=== PATIENT | male | born 1975 | race Caucasian/White ===

== ENCOUNTER 2019-10-31 15:28 | Outpatient (CLI) | payer OTHER, SELFPAY ==
--- NOTE | 2019-10-31 15:40 | XR_ITS ---
WS: [id number] CERVICAL SPINE 3 VIEWS HISTORY: PAIN COMPARISON: None available. C5 retrolisthesis by 1.5 mm with respect to C6. Mild disc space narrowing at C5-6 with small osteophy susannah. No fractures. Lateral masses of C1 and C2 are aligned. Odontoid is intact. Soft tissues are normal. Unfused apophysis versus healed fracture tip of the C7 spinous process. XR/XR cervical spine 3V* [id number] IMPRESSION: Mild degenerative disc disease and spondylosis at C5-6. No fracture.
== END 2019-10-31 15:29 | disposition home or self-care (01) ==
LOC: RAD 15:33
PROVIDERS: Family Provider Nurse Practitioner; PCP Nurse Practitioner Family; Visit Provider Registered Nurse
DX: M50.322 Other cervical disc degeneration at C5-C6 level (principal)
CPT/HCPCS: 72040

== ENCOUNTER → 2020-06-30 12:00 | Outpatient (BNVA) | payer SELFPAY | PROVIDERS: Family Provider Nurse Practitioner; Visit Provider Family Medicine | DX: Z20.828 Contact with and (suspected) exposure to other viral communicable diseases (principal) | CPT/HCPCS: 87426; 87635 ==

== ENCOUNTER 2020-07-14 06:47 | Outpatient (CLI) | payer OTHER, SELFPAY ==
--- NOTE | 2020-07-14 07:15 | MR_ITS ---
WS: [id number] MRI RIGHT SHOULDER NONCONTRAST TECHNIQUE: Sagittal T2, coronal T1, T2 and proton density imaging. Axial gradient PDE imaging. CLINICAL INFORMATION: CHRONIC RIGHT SHOULDER PAIN COMPARISON: None. FINDINGS: Moderate degenerative arthritis AC joint with mild edema. Mild downsloping acromion. Slight subacromi al spurring. Degenerative arthritis AC joint is advanced for patient this age. Mild tendinopathy in the supraspinatus distally at the insertion. Supraspinatus is otherwise normal. Normal infraspinatus. Normal teres minor and subscapularis. Normal biceps labral anchor. Normal bicep s tendon in the bicipital groove. Tendinopathy or small intrasubstance tear within the intra-articula r biceps tendon.Glenoid labrum appears grossly unremarkable. MR/MR shoulder RT wo con* [id number] IMPRESSION: 1. Moderate degenerative arthritis with edema at the AC joint and mild downslo ping acromion. This is somewhat advanced for patient this age. 2. Mild tendinopathy in the distal supraspinatus at the insertion. 3. Rotator cuff is otherwise unremarkable. 4. Normal biceps tendon in the bicipital groove. 5. Tendinopathy or small intrasubstance tear within the intra-articular biceps tendon. 6. No other significant findings.
--- NOTE | 2020-07-14 07:27 | MR_ITS ---
WS: [id number] MRI CERVICAL SPINE NONCONTRAST TECHNIQUE: Sagittal T1, T2 and STIR imaging. Axial T2, gradient, and fiesta imaging. CLINICAL INFORMATION: CERVICAL RADICULOPATHY COMPARISON: None. FINDINGS: Straightening of the normal cervical lordosis. Disc bulging worse at C5-C6. Cord signal is normal. C2-C3: Normal C3-C4: Mild right and no significant left foraminal narrowing. Spinal canal is patent. C4-C5: Mild disc osteophytic ridging. Mild right and no significant left foraminal narrowing. Spinal canal is patent. Mild facet arthropathy. C5-C6: Disc osteophyte protrusion with slight indentation on cervical cord. Moderate central canal st enosis. Moderate bilateral bony foraminal narrowing. Moderate facet arthropathy. Foraminal narrowing worse in the left. C6-C7: Disc osteophyte complex with endplate ridging. Mild right and no significant left foraminal na rrowing. Spinal canal is patent. C7-T1: Mild left and no significant right foraminal narrowing. Spinal canal is patent. Visualized brain stem structures: Normal. Prevertebral soft tissues: Normal. MR/MR cervical spin wo con* [id number] IMPRESSION: 1. Straightening of the normal cervical lordosis. 2. Disc osteophyte complex C5-C6 with moderate central canal stenosis and mode rate bilateral bony foraminal narrowing 3. Moderate right C3-C4 and right C4-C5 bony foraminal narrowing. 4. Mild right C6-C7 bony foraminal narrowing. 5. Cord signal is normal.
== END 2020-07-14 06:48 | disposition home or self-care (01) ==
LOC: RADSHAW 06:50
PROVIDERS: PCP Family Medicine; Visit Provider Family Medicine
DX: M54.12 Radiculopathy, cervical region (principal); G89.29 Other chronic pain; M19.111 Post-traumatic osteoarthritis, right shoulder; M25.78 Osteophyte, vertebrae; M48.02 Spinal stenosis, cervical region
CPT/HCPCS: 72141; 73221

== ENCOUNTER 2021-12-11 15:03 | Emergency (ER) | payer OTHER, SELFPAY ==
[2021-12-11 15:10] VITALS: BP 177/119; PULSE 104; RESP 18; TEMP 36.7; O2SAT 97; BMI 32.3
[2021-12-11] MEDS: ceFAZolin 1,000 MG in sodium chloride 0.9% (plus) 50 ML 100 MG IV (15:47)
--- NOTE | 2021-12-11 16:45 | W.ED.EXTPRO ---
HPI - Extremity Problem General: Chief complaint: Extremity Injury, Upper Stated complaint: injury to left arm from box knife Time Seen by Provider: 12/11/21 15:24 Source: patient Mode of arrival: ambulatory Limitations: no limitations History of Present Illness: [id number] male presents emergency room with complaint of left forearm laceration. 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 They have been treating with direct pressure. MD Complaint: extremity pain Onset (ago): minute(s) Pain Consistency: constant Location: left and upper extremity Quality: sharp Radiation: distal Relieving factors: nothing Exacerbating factors: nothing Associated symptoms: Deny arthralgias, chest pain, fever(s), myalgias, rash or short of breath Review of Systems Const: Denies: fever(s) ENMT: Denies: throat pain, ear or mastoid pain, nasal discharge or nasal congestion Card: Denies: chest pain Resp: Denies: dyspnea, productive cough or non-productive cough GI: Denies: abdominal pain, nausea, vomiting, hematemesis, coffee ground emesis, diarrhea, constipation, bloating, hematochezia or melena : Denies: flank pain, dysuria, urinary frequency or urinary urgency Skin/Breast: Denies: rash PFSH ED PFSH: Medical History (Updated 12/11/21 @ 16:48 by Perry Graves DO) Anxiety Gout Seizure Surgical History (Updated 12/11/21 @ 16:48 by Perry Graves DO) History of ankle surgery History of back surgery History of facial surgery History of knee surgery Social History Smoking and tobacco status: current every day smoker smokeless tobacco Alcohol intake: current Alcohol intake frequency: holidays/special occasions only Physical Exam Const: COMMON NORMALS: no acute distress GENERAL APPEARANCE: cooperative and comfortable ORIENTATION/CONSCIOUSNESS: Yes awake, Yes oriented to person, Yes oriented to place and Yes oriented to time HENMT: COMMON NORMALS: normocephalic, atraumatic and hearing grossly normal bilaterally HEAD & SCALP: normocephalic and atraumatic Neck/C-Spine: COMMON NORMALS: no JVD Resp: COMMON NORMALS: normal respiratory effort, No retractions, No use of accessory muscles and clear to auscultation bilaterally AUSCULTATION: clear to auscultation bilaterally Cardio: COMMON NORMALS: no JVD, regular rate, regular rhythm and No murmurs present (Cardio) RATE: regular rate RHYTHM: regular rhythm Extremity: OTHER: 3 in laceration on the proximal volar surface of forearm with large amount of bleeding with direct pressure is stopped. See laceration note. Patient is able to move wrist and fingers in flexion extension against resistance without difficulty strength is well preserved sensation is preserved. Neuro: SENSORIUM/ORIENTATION: Yes oriented to person, Yes oriented to place and Yes oriented to time Skin: COMMON NORMALS: no rashes or lesions noted GENERAL SKIN EXAM: no rashes or lesions noted Procedures Laceration Laceration 1: Site: upper extremity Side (If applicable): left Size (cm): 7.5 Description: linear Depth: involves muscle layer Local Anesthetic: lidocaine 1% and with epi Amount of anesthesia used (mL): 8 Pre-repair: wound explored, irrigated extensively and deep structures intact Skin layer closed with: other (Prolene) Size (cm): 3-0 Number of sutures: 1 Technique: running Subcutaneous layer closed with: chromic gut (5.0) and vicryl (4.0) Size: 5-0 Number of sutures: 5 Technique: other (6 [id number] sutures applied subcutaneously around isolated veins that were clamped with a hemostat then [id number] applied to control bleeding. When completed no active bleeding was noted in the wound field) Course Vital Signs: Vital signs: Vital Signs Temperature 98.1 F 12/11/21 15:10 Pulse Rate 104 H 12/11/21 15:10 Respiratory Rate 18 12/11/21 15:10 Blood Pressure 177/119 12/11/21 15:10 Pulse Oximetry 97 12/11/21 15:10 MDM - Extremity (Nontraumatic) Medical Decision Making Left arm is elevated using Curlex and an IV stent then blood pressure cuff is applied with moderate pressure and direct pressure on the wound was able to control the bleeding and eventually isolate the affected blood vessels that were actively bleeding and significant amount. 6 interrupted sutures 4-0 Vicryl and 5-0 chromic were applied with good hemostasis. After this wound was irrigated and explored there is no tendon involvement although there was some exposure of muscle. Wound was then closed with 4-0 nylon running locking suture with good approximation cosmesis and hemostasis wound rechecked after 20 minutes there is no active bleeding or formation of hematoma under the skin. Wound care instructions given. Patient is work comp his employer is sending someone to do drug screen and alcohol since this is a work-related issue. Wound care instructions given. Sutures to be removed in 7 to 10 days Discharge Plan Discharge Patient Disposition: Home Clinical Impression: Laceration Condition: Stable Prescriptions: New cephalexin 750 mg capsule 750 mg PO BID 7 Days Qty: 14 0RF mupirocin 2 % ointment 1 applic topical BID Qty: 15 0RF No Action clonazepam 1 mg tablet 1 mg PO BID 0RF lamotrigine [Lamictal] 100 mg tablet 100 mg PO DAILY 0RF sertraline [Zoloft] 20 mg/mL concentrate 20 mg PO DAILY 0RF Discharge Orders: Discharge ED (Routine); Ordered 12/11/21 Ordered By: Perry Graves Referrals: Amy Lema DO [Primary Care Provider] - Discharge Diet: Usual diet Discharge Activity: Resume usual activity Patient Instructions: Laceration (ED), Opioid Safety Coding Level of Care Code 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
== END 2021-12-11 17:01 | disposition home or self-care (01) ==
PROVIDERS: Emergency Provider Family Medicine; PCP Family Medicine
DX: S51.812A Laceration without foreign body of left forearm, initial encounter (principal); W26.0XXA Contact with knife, initial encounter
CPT/HCPCS: 12032; 96374; 99283; J0690